=== PATIENT | male | born 1935 | race Caucasian/White ===

== ENCOUNTER 2018-09-27 23:45 | Emergency (ER) | payer OTHER ==
[~2018-09-27 23:45] MED LIST: EPINEPHrine 1 MG/10 ML SYR ONE
[2018-09-28] MEDS ORDERED: Magnesium Sulfate 2gm IVPB 2 G/50 ML BAG IV ONE (00:01)
[2018-09-28] MEDS ORDERED: PROPOFOL 0 MG/0 ML VIAL IV ONE (00:02)
[2018-09-28] MEDS ORDERED: HEPARIN/D5W 25,000 UNIT/500 ML BAG IV ONE (00:19)
[2018-09-28] MEDS ORDERED: HEPARIN 5000 UNIT/ML 1 ML VIAL ONE (00:19)
[2018-09-28] MEDS ORDERED: AMIODARONE HCL 150 MG/3 ML INJ IV ONE (00:25)
[2018-09-28] MEDS ORDERED: NOREPINEPHRINE 4 MG/4 ML VIAL ONE (00:30)
[2018-09-28] MEDS ORDERED: NOREPINEPHRINE 4mg/D5W 250mL 4 MG/250 ML BAG IV ONE (00:33)
--- NOTE | 2018-09-28 00:52 | ER ---
Nurse's Notes [facility] Name: Michael Kee Age: 83 yrs Sex: Male : 1935 Arrival Date: 09/27/2018 Time: 23:47 Bed 3 Private MD: Diagnosis: Post arrest;Hypotension;CPR;Ventricular Fibrillation Presentation: 09/27 23:47 Presenting complaint: EMS states: Pt had witnessed arrest, EMS called and CPR started tl2 within 2 minutes by officer, shocked twice with AED, Vfib rhythm. EMS gave 1 mg epi, lidocaine drip and 1 shock, then converted to sinus rhythm with PVC's. administered 30 mg rocuronium for sedation. Pt intubated by EMS, 8.0 tube, 26 at the lip. Transition of care: patient was not received from another setting of care. Onset of symptoms was September 27, 2018 at 23:00. Risk Assessment: Do you want to hurt yourself or someone else? Patient reports no desire to harm self or others. Initial Sepsis Screen: Does the patient meet any 2 criteria? No. Patient's initial sepsis screen is negative. Does the patient have a suspected source of infection? No. Patient's initial sepsis screen is negative. Care prior to arrival: Oral intubation, Medication(s) given: epinephrine, lidocaine, rocuronium IV initiated. 18 GA, in the left jugular L tibia IO. 23:47 Method Of Arrival: EMS: [facility] tl2 23:47 Acuity: CLAUDIA 1 tl2 09/28 00:52 Acuity: CLAUDIA 1 jd3 Triage Assessment: 09/27 23:48 General: Appears Behavior is unresponsive. Pain: Unable to use pain scale. Patient is tl2 unresponsive. Neuro: Level of Consciousness is unresponsive. Cardiovascular: Rhythm is idioventricular rhythm. Respiratory: Airway via oral intubation Breath sounds are clear bilaterally. GI: No signs and/or symptoms were reported involving the gastrointestinal system. Derm: Skin is pale. Historical: - Allergies: 09/28 01:51 PENICILLINS; tl2 - Home Meds: 01:51 gabapentin oral oral [Active]; amlodipine oral [Active]; Metoprolol Tartrate Oral tl2 [Active]; Aspirin Oral [Active]; Lisinopril Oral [Active]; atorvastatin oral oral [Active]; - PMHx: 01:51 Hypertension; Hyperlipidemia; CAD; tl2 - PSHx: 01:51 quadruple bypass; stents; tl2 - Immunization history:: Adult Immunizations up to date. - Social history:: Smoking status: unknown. - Ebola Screening: : No symptoms or risks identified at this time. Screenin:00 Abuse screen: Denies threats or abuse. Nutritional screening: No deficits noted. tl2 Tuberculosis screening: No symptoms or risk factors identified. Fall Risk Secondary diagnosis (15 points) IV access (20 points). Assessment: 00:00 General: see triage assessment. tl2 00:30 Reassessment: PA at bedside for central line placement. tl2 Vital Signs: 09/27 23:49 BP 109 / 64; Pulse 96; Resp 16 A; Pulse Ox 100% on ETT ambu; tl2 09/28 00:00 BP 98 / 52; Pulse 87; Resp 16 A; Pulse Ox 100% on ETT vent; tl2 00:07 Weight 86 kg; bb 00:20 BP 86 / 56; Pulse 73; Resp 16 A; Temp 96.6; Pulse Ox 99% on ETT vent; tl2 00:35 BP 94 / 49; Pulse 82; Resp 16 A; Temp 96.6(C); Pulse Ox 100% on ETT ambu; tl2 00:50 BP 115 / 63; Pulse 79; Resp 16 A; Temp 96.1(C); Pulse Ox 98% on ETT vent; tl2 01:00 BP 129 / 69; Pulse 82; Resp 16 A; Temp 95.8(C); Pulse Ox 100% on ETT vent; tl2 01:15 BP 118 / 54; Pulse 86; Resp 16 A; Temp 95.5(C); Pulse Ox 99% on ETT vent; tl2 [place] Coma Score: 00:57 Eye Response: none(1). Verbal Response: none(1). Motor Response: none(1). Modifying jr8 Factors: Intubated. Total: 3. ED Course: 09/27 23:47 Patient arrived in ED. ds1 23:48 Maintain EMS IV. Dressing intact. Good blood return noted. Site clean \T\ dry. Gauge \T\ tl 2 site: 18 g L EJ. 23:48 Maintain EMS IV. Dressing intact. Good blood return noted. Site clean \T\ dry. Gauge \T\ tl 2 site: L tibia IO. 09/28 00:00 Michael Andres PA is PHCP. jr8 00:00 Dennis Rushing MD is Attending Physician. jr8 00:00 Patient has correct armband on for positive identification. Bed in low position. Call tl2 light in reach. Side rails up X2. 00:00 Inserted saline lock: 20 gauge in right wrist, using aseptic technique. Blood collected.tl2 00:08 Mcarthur cath inserted, using sterile technique, 16 Fr., by ED staff, balloon inflated, to tl2 gravity drainage, returned julee urine. 00:10 X-ray completed. Portable x-ray completed in exam room. Patient tolerated procedure sg4 well. 00:10 NGT: inserted 16 Fr. via right nare. verified placement of air over stomach, verified tl2 return of gastric contents, Placement verified by X-ray, to intermittent suction. Returned gastric contents. 00:23 Chest Single View XRAY In Process Unspecified. EDMS 00:30 Assisted provider with central line placement. Set up central line tray. Triple lumen tl2 line placed in right femoral. Line placed by Michael MCDONALD Placement verified by blood return, Dressed with Tegaderm, Patient tolerated well. 00:39 called [facility] to initiate transfer. spoke with guru gonzalez. 0039. gm 00:47 0047 doc to doc was done with dr xiong and dr rushing. gm 00:50 administrative approval was given at 0050. gm 00:52 Triage completed. jd3 01:09 [facility] will be here in 30 minutes. gm 01:15 Arm band placed on right wrist. tl2 01:17 tried to initiate transfer with [facility]. spoke with Lyric and she said they were gm at capacity. 01:30 Patient transferred, IV remains in place. tl2 01:34 Lyudmila Teran, VISHNU is Primary Nurse. tl2 Administered Medications: 09/27 23:54 Drug: Magnesium Sulfate 4 grams Route: IVPB; Infused Over: 15 mins; Site: left jugular; tl2 09/28 00:00 Follow up: IV Status: Completed infusion tl2 00:12 Drug: Heparin (MN-Bolus No thrombolytic) - HEParin 60 units/kg {Co-Signature: jd3 tl2 (Aric Lam RN).} Route: IVP; Site: left jugular; 00:30 Follow up: Response: No adverse reaction tl2 00:12 Drug: Heparin (MN Drip) 12 units/kg/hr - (HEParin 63757 units, D5W 500 ml) tl2 {Co-Signature: diogo (Cookie Díaz RN).} Route: IV; Rate: calculated rate; Site: left jugular; 02:07 Follow up: IV Status: Infusion continued upon transfer tl2 00:22 Drug: amiodarone 150 mg Route: IVP; Site: right wrist; tl2 01:00 Follow up: Response: No adverse reaction tl2 00:25 Drug: EPINEPHrine 0.1mg/mL 1:10,000 0.5 mg Route: IVP; Site: left jugular; tl2 00:50 Follow up: Response: No adverse reaction; No change in condition tl2 00:33 Drug: NS 0.9% 1000 ml Route: IV; Rate: 100 ml/hr; Site: Other; tl2 02:07 Follow up: IV Status: Infusion continued upon transfer tl2 00:39 Drug: amiodarone 900 mg, D5W 500 ml Route: IVPB; Rate: 1 mg/min; Site: right femoral; tl2 02:05 Follow up: IV Status: Infusion continued upon transfer tl2 00:44 Drug: Levophed (4 mg/250 mL D5W 4 mcg/min Route: IV; Rate: calculated rate; Site: right tl2 femoral; 00:45 Follow up: Rate change 5 mcg/min tl2 02:07 Follow up: IV Status: discontinued by [facility] tl2 01:37 Not Given (pt transported by [facility]): fentaNYL (PF) 2 mcg/kg/h IV at calculated bb rate continuous Outcome: 00:50 ER care complete, transfer ordered by . ps1 01:30 Transferred by helicopter to [facility], Transfer form completed. tl2 01:30 critical 01:30 Discharge instructions given to family, Instructed on the need for transfer. 02:09 Patient left the ED. tl2 Signatures: Dispatcher [employer] EDOH Luna Wadsworth ds1 Cookie Díaz RN RN bb Roszak, Josh, PA PA jr8 Lyudmila Teran RN RN tl2 Aric Lam RN RN jd3 Singer, Phillip, MD MD ps1 Garcia, Susana sg4 Judy Cortez gm RN jd3 Cookie Díaz RN bb
[2018-09-28 01:03] LABS: Absolute Lymphocytes (CBC) 4.4 K/uL (0.7-4.9); Absolute Monocytes 0.6 K/uL (0.1-1.3); Absolute Neutrophil 9.5 K/uL (1.8-8.0); Basophils % 0.3 % (0-1.3); Eosinophils % 1.4 % (0-4.4); Hematocrit 37.2 % (39.6-49.0); Lymphocytes % 30.1 % (15.3-44.8); MPV 11.4 fL (7.6-11.3); Monocytes % 4.2 % (3.3-12.3); RBC Red Blood Cell Count 4.12 M/uL (4.33-5.43)
[2018-09-28] MEDS ORDERED: FENTANYL CITR 250 MCG/5 ML ONE (01:21)
[2018-09-28 01:49] LABS: Potassium 3.5 mmol/L (3.5-5.1); Sodium Level 143 mmol/L (136-145)
[2018-09-28 01:52] LABS: Albumin 2.9 g/dL (3.4-5.0); BUN Blood Urea Nitrogen 20 mg/dL (7-18); Bicarbonate 18 mmol/L (21-32); Glucose Level 257 mg/dL (74-106)
[2018-09-28 01:54] LABS: Magnesium 2.9 mg/dL (1.8-2.4)
--- NOTE | 2018-09-28 02:10 | EDPHYS ---
Physician Documentation [facility] Name: Michael Kee Age: 83 yrs Sex: Male : 1935 Arrival Date: 09/27/2018 Time: 23:47 Bed 3 Private MD: ED Physician Dennis Mckinley HPI: 09/28 00:57 This 83 yrs old Male presents to ER via Unassigned with complaints of ROSC- jr8 post arrest. 00:57 Preceding the arrest, the patient collapsed. The arrest occurred at home. Pre-hospital jr8 course: The arrest was witnessed by family. Bystanders at the scene performed CPR. EMS care prior to arrival: initiation of ACLS, peripheral IV, was successfully placed. intubation was successfully performed, orally, using a 8 ET tube. oxygen, by BVM to assist ventilations. 100% by ET tube. backboard, 10 minutes elapsed prior to ACLS. ACLS details: Initial rhythm was V-fib. The presenting rhythm is tachycardia. Airway: Ambu assist ventilation, oral intubation, Medications given by EMS prior to arrival - Epinephrine IV x 1 doses, Lidocaine given IV push, Lidocaine drip was started, Defibrillated X 3, Response to therapy: return of rhythm, return of pulse. The patient has not experienced similar symptoms in the past. The patient has not recently seen a physician. stated that they were making the bed when he suddenly slumped over. Family and 911 called immediately. Granddaughter initiated CPR. Police arrived shortly after and defibrillated patient x 2 and continued CPR till EMS arrived. Historical: - Allergies: 01:51 PENICILLINS; tl2 - Home Meds: 01:51 gabapentin oral oral [Active]; amlodipine oral [Active]; Metoprolol Tartrate Oral tl2 [Active]; Aspirin Oral [Active]; Lisinopril Oral [Active]; atorvastatin oral oral [Active]; - PMHx: 01:51 Hypertension; Hyperlipidemia; CAD; tl2 - PSHx: 01:51 quadruple bypass; stents; tl2 - Immunization history:: Adult Immunizations up to date. - Social history:: Smoking status: unknown. - Ebola Screening: : No symptoms or risks identified at this time. ROS: 00:57 Unable to obtain ROS due to patient is on ventilator. jr8 Exam: 00:57 Eyes: Pupils equal round and reactive to light. Lids and lashes normal. Conjunctiva jr8 and sclera are non-icteric and not injected. Cornea within normal limits. Periorbital areas with no swelling, redness, or edema. ENT: Nares patent. No nasal discharge, no septal abnormalities noted. Oropharynx with no redness, swelling, or masses, exudates, or evidence of obstruction, uvula midline. Mucous membranes moist. Neck: Trachea midline, no thyromegaly or masses palpated, and no cervical lymphadenopathy. Supple Cardiovascular: Sinus Tachycarida with irregular rhythm with a normal S1 and S2. No gallops, murmurs, or rubs. Normal PMI, no JVD. No pulse deficits. Respiratory: Lungs have equal breath sounds bilaterally, clear to auscultation. No rales, rhonchi or wheezes noted. Mechanically ventilated Abdomen/GI: Soft with normal bowel sounds. No distension Skin: Cool and dry. Normal color with no rashes, no lesions, and no evidence of cellulitis. Vital Signs: 09/27 23:49 BP 109 / 64; Pulse 96; Resp 16 A; Pulse Ox 100% on ETT ambu; tl2 09/28 00:00 BP 98 / 52; Pulse 87; Resp 16 A; Pulse Ox 100% on ETT vent; tl2 00:07 Weight 86 kg; bb 00:20 BP 86 / 56; Pulse 73; Resp 16 A; Temp 96.6; Pulse Ox 99% on ETT vent; tl2 00:35 BP 94 / 49; Pulse 82; Resp 16 A; Temp 96.6(C); Pulse Ox 100% on ETT ambu; tl2 00:50 BP 115 / 63; Pulse 79; Resp 16 A; Temp 96.1(C); Pulse Ox 98% on ETT vent; tl2 01:00 BP 129 / 69; Pulse 82; Resp 16 A; Temp 95.8(C); Pulse Ox 100% on ETT vent; tl2 01:15 BP 118 / 54; Pulse 86; Resp 16 A; Temp 95.5(C); Pulse Ox 99% on ETT vent; tl2 [place] Coma Score: 00:57 Eye Response: none(1). Verbal Response: none(1). Motor Response: none(1). Modifying jr8 Factors: Intubated. Total: 3. Procedures: 00:57 Central Line: the site was prepped with Betadine, in sterile fashion, a triple lumen jr8 catheter was inserted, in the right femoral vein, in 1 attempts. placement was verified, by blood return, the site was dressed with 4X4s, Tegaderm, foam tape, using sterile technique, the patient tolerated the procedure, well. MDM: 00:00 Patient medically screened. jr8 00:57 Data reviewed: vital signs, nurses notes, lab test result(s), EKG, radiologic studies, jr8 plain films. Data interpreted: Pulse oximetry: on room air is 100 %. Interpretation: normal. Counseling: I had a detailed discussion with the patient and/or guardian regarding: the historical points, exam findings, and any diagnostic results supporting the discharge/admit diagnosis, lab results, radiology results, the need to transfer to another facility, [facility] does not immediately have the required specialist. ED course: Phuc Consulted and accepted patient to CCU for further evaluation . 09/27 23:56 Order name: Basic Metabolic Panel [facility] 09/27 23:56 Order name: CBC with Diff; Complete Time: 01:31 [facility] 09/27 23:56 Order name: LFT's [facility] 09/27 23:56 Order name: Magnesium [facility] 09/27 23:56 Order name: NT PRO-BNP [facility] 09/27 23:56 Order name: PT-INR; Complete Time: 01:31 2 09/27 23:56 Order name: Troponin (emerg Dept Use Only) [facility] 09/27 23:58 Order name: Chest Single View XRAY [facility] 09/27 23:56 Order name: EKG; Complete Time: 23:57 [facility] 09/27 23:56 Order name: Cardiac monitoring; Complete Time: 00:03 2 09/27 23:56 Order name: EKG - Nurse/Tech; Complete Time: 00:03 2 09/27 23:56 Order name: IV Saline Lock; Complete Time: 00:03 2 09/27 23:56 Order name: Labs collected and sent; Complete Time: 00:03 2 09/27 23:56 Order name: O2 Per Protocol; Complete Time: 00:03 2 09/27 23:56 Order name: O2 Sat Monitoring; Complete Time: 00:04 2 Administered Medications: 09/27 23:54 Drug: Magnesium Sulfate 4 grams Route: IVPB; Infused Over: 15 mins; Site: left jugular; tl2 09/28 00:00 Follow up: IV Status: Completed infusion tl2 00:12 Drug: Heparin (ID-Bolus No thrombolytic) - HEParin 60 units/kg {Co-Signature: jd3 tl2 (Aric Lam RN).} Route: IVP; Site: left jugular; 00:30 Follow up: Response: No adverse reaction tl2 00:12 Drug: Heparin (ID Drip) 12 units/kg/hr - (HEParin 32197 units, D5W 500 ml) tl2 {Co-Signature: bb (Cookie Díaz RN).} Route: IV; Rate: calculated rate; Site: left jugular; 02:07 Follow up: IV Status: Infusion continued upon transfer tl2 00:22 Drug: amiodarone 150 mg Route: IVP; Site: right wrist; tl2 01:00 Follow up: Response: No adverse reaction tl2 00:25 Drug: EPINEPHrine 0.1mg/mL 1:10,000 0.5 mg Route: IVP; Site: left jugular; tl2 00:50 Follow up: Response: No adverse reaction; No change in condition tl2 00:33 Drug: NS 0.9% 1000 ml Route: IV; Rate: 100 ml/hr; Site: Other; tl2 02:07 Follow up: IV Status: Infusion continued upon transfer tl2 00:39 Drug: amiodarone 900 mg, D5W 500 ml Route: IVPB; Rate: 1 mg/min; Site: right femoral; tl2 02:05 Follow up: IV Status: Infusion continued upon transfer tl2 00:44 Drug: Levophed (4 mg/250 mL D5W 4 mcg/min Route: IV; Rate: calculated rate; Site: right tl2 femoral; 00:45 Follow up: Rate change 5 mcg/min tl2 02:07 Follow up: IV Status: discontinued by [facility] tl2 01:37 Not Given (pt transported by [facility]): fentaNYL (PF) 2 mcg/kg/h IV at calculated bb rate continuous Disposition: 01:05 Critical Care:. jr8 03:25 Co-signature as Attending Physician, Dennis Mckinley MD I agree with the assessment and ps1 plan of care. PA/SECURITY SALES MANAGER's history reviewed, patient interviewed, and examined. Attestation: The patient's history, exam findings, diagnostics, and a summary of any interventions or procedures was reviewed in detail with Michael MCDONALD ROSC, OOH arrest Defib x3. Hypotension. central line placed. Present for haskins portions of procedure. On amiodarone, levophed, and heparin. Idioventricular rhythm. ET tube 26 and in good position. Accepted at [facility] at time of transport by air. . Disposition: 09/28/18 00:50 Transfer ordered to [facility]. Diagnosis are Post arrest, Hypotension, CPR, Ventricular Fibrillation. - Reason for transfer: Higher level of care. - Accepting physician is Cora. - Condition is Critical. - Problem is new. - Symptoms have improved. Critical care time excluding procedures: 01:05 Critical care time: Bedside Care: 20 minutes, Consultation: 10 minutes, Family ronal Intervention: 10 minutes. Total time: 40 minutes Signatures: Dispatcher [employer] [facility] Cookie Díaz, VISHNU RN Michael Birmingham PA PA jrLyudmila Aguilera RN RN tl2 Dennis Mckinley MD MD ps1 Aric Lam RN jd3 Cookie Díaz RN bb Corrections: (The following items were deleted from the chart) 00:23 09/27 23:57 Chest Pa And Lat (2 Views)+[email or web address] ordered. [facility] 09/28 02:09 00:50 09/28/2018 00:50 Transfer ordered to [facility]. tl2 Diagnosis is Post arrest; Hypotension; CPR; Ventricular Fibrillation. Reason for transfer: Higher level of care. Accepting physician is Cora. Condition is Critical. Problem is new. Symptoms have improved. ps1
[2018-09-28 02:29] LABS: Alkaline Phosphatase 165 U/L (45-117); Bilirubin Direct < 0.1 mg/dL (0-0.2); Bilirubin Total 0.2 mg/dL (0.2-1.0); NT PRO-BNP 1079 pg/mL (<450); Protein, Total 6.5 g/dL (6.4-8.2); Troponin (Emerg Dept Use Only) 0.28 ng/mL (0.0-0.045)
[2018-09-28 02:32] LABS: ALT/SGPT 496 U/L (12-78); AST/SGOT 510 U/L (15-37)
[2018-09-28 03:22] VITALS: BP 118/54; TEMP 95.5; O2SAT 99
--- NOTE | 2018-09-28 08:06 | RAD REPORT ---
EXAM DESCRIPTION: RAD - Chest Single View - 09/28/2018 12:14 am CLINICAL HISTORY: Intubation, shortness of breath A preliminary report was provided at the time of the study and reviewed prior to final report. COMPARISON: March 2018, November 2015 TECHNIQUE: AP portable chest image was obtained 0010 hours . FINDINGS: Endotracheal tube has been placed with the tip mid aortic arch level. This is approximatel y 2 cm above the ava. Lung volumes are substantially reduced from the comparison studies. This acc entuates lung markings, vasculature and heart size. A mild failure or volume overload are certainly p ossible. No focal consolidation or significant diffuse pulmonary edema. Left hilar and suprahilar nod ularity is identified. A true mass the lung parenchyma is unlikely. This is probably summation of vas culature and bony hypertrophy of the anterior left first rib. No measurable pleural effusion and no p neumothorax. No acute bony abnormality seen. No acute aortic findings suspected. IMPRESSION: Fibrotic lung pattern accentuated by shallow inspiration. No focal consolidations seen. Cardiomegaly and vascular engorgement probably the affects of shallow inspiration. A mild failure or volume overload is certainly possible. Endotracheal tube in good position. Left hilar or suprahilar mass density (detailed on preliminary report) is believed to be summation of left hilar vasculature and hypertrophy of the anterior left first rib. True mass is felt to be low i n likelihood.
--- NOTE | 2018-09-28 11:24 | EKG ---
Test Date: 2018-09-27 Test Time: 23:50:00 Human Resources Vice President: FERNANDO MEASUREMENT RESULTS: Intervals: Rate: 98 SC: QRSD: 146 QT: 404 QTc: 515 [place]: P: SC: QRS: -68 T: 105 INTERPRETIVE STATEMENTS: AFIB WITH RVR Left axis deviation Left bundle branch block Abnormal ECG Compared to ECG 10/23/2015 05:43:08 Left-axis deviation now present Left bundle-branch block now present Sinus rhythm no longer present Ventricular premature complex(es) no longer present First degree AV block no longer present Myocardial infarct finding no longer present Electronically Signed On 09-28-18 11:23:29 MATZO FORMING MACHINE OPERATOR by Tony Kaiser
== END 2018-09-28 02:09 | disposition short-term general hospital (02) ==
LOC: ER 23:45
PROC: 06HM33Z Insertion of Infusion Device into Right Femoral Vein, Percutaneous Approach (ICD-10-PCS; principal; 2018-09-28)
DX: I49.01 Ventricular fibrillation (principal); I95.9 Hypotension, unspecified; I10 Essential (primary) hypertension; E78.5 Hyperlipidemia, unspecified; Z79.82 Long term (current) use of aspirin; Z88.0 Allergy status to penicillin; Z95.1 Presence of aortocoronary bypass graft
CPT/HCPCS: 36415; 36556; 71045; 80048; 80076; 83735; 83880; 84484; 85025; 85610; 93005; J0171; J0282; J1644; J2704; J3010; J3475; J7060 ×2